=== PATIENT | male | born 1930 | race Caucasian/White ===

== ENCOUNTER 2017-02-19 11:56 | Emergency (ER) | payer MEDICARE, BC ==
[2017-02-19 12:40] LABS: #Eosinphils 0.1 thou/uL (0.0-0.7); #Lymphocytes 0.9 thou/uL (1.20-3.40); #Monocytes 0.6 thou/uL (0.11-0.59); #Neutrophils 6.1 thou/uL (1.40-6.50); %Basophils 0.5 % (0.0-1.0); %Eosinophils 1.6 % (0.0-10.0); %Lymphocytes 11.7 % (21.0-51.0); %Monocytes 8.1 % (0.0-10.0); Hematocrit 41.1 % (42.0-52.0); Mean Platelet Volume 8.6 fL (7.4-10.4); Red Blood Cell (RBC) Count 4.47 mill/uL (4.70-6.10); White Blood Cell (WBC) Count 7.9 thou/uL (4.8-10.8)
[2017-02-19 13:03] LABS: ALT (SGPT) 18 U/L (8-55); AST (SGOT) 24 U/L (5-34); Alkaline Phosphatase 101 U/L (40-150); Anion Gap 14 mmol/L (10-20); BUN (Urea Nitrogen) 27 mg/dL (8.4-25.7); Bilirubin, Total 0.4 mg/dL (0.2-1.2); Calc. Creatinine Clearance 0 mL/min (70-130); Calcium 9.4 mg/dL (7.8-10.44); Carbon Dioxide 25 mmol/L (23-31); Chloride 102 mmol/L (98-107); Estimated GFR-MDRD 58; Globulin 3.3 g/dL (2.4-3.5)
--- NOTE | 2017-02-19 14:44 | RAD ---
PORTABLE AP CHEST X-RAY: 02/19/2017 HISTORY: Concern for CHF. Dyspnea. COMPARISON: 04/04/2016 FINDINGS: Again noted is a pleural-based density at the left base, unchanged from prior study, which may be re lated to persistent left pleural effusion or pleural and parenchymal scarring. There is mild eventr ation of the medial aspect of the left hemidiaphragm. The right lung remains clear. The cardiac si lhouette and pulmonary vasculature are within normal limits. Again noted is evidence of prior granul omatous disease. A mass like prominence in the left hilar region is again seen and unchanged as wel l. There is osteopenia. Vascular calcification is again seen in the thoracic aorta. IMPRESSION: 1. Stable pleural-based density at the left lung base, which may be related to either a loculated p leural fluid collection or possibly secondary to pleural thickening. 2. Stable mass-like prominence in the left hilar region, seen on multiple prior studies, and was al so seen on a CT of the thorax on 10/19/[address] scan examination on 11/08/2012, and did not d emonstrate uptake on the PET scan. This may be related to a chronic area of rounded atelectasis. 3. Osteopenia. 4. Chest x-ray is overall stable from the prior exam. POS: [facility]
== END 2017-02-19 17:04 | disposition home or self-care (01) ==
LOC: ERS 11:56
DX: J20.9 Acute bronchitis, unspecified (principal); I11.0 Hypertensive heart disease with heart failure; I50.9 Heart failure, unspecified; E78.5 Hyperlipidemia, unspecified; F32.9 Major depressive disorder, single episode, unspecified; Z79.899 Other long term (current) drug therapy
CPT/HCPCS: 36415; 71010; 80053; 83880; 85025

== ENCOUNTER 2017-02-28 08:37 | Emergency (ER) | payer MEDICARE, BC ==
[2017-02-28 09:05] LABS: #Eosinphils 0.1 thou/uL (0.0-0.7); #Lymphocytes 0.6 thou/uL (1.20-3.40); #Monocytes 0.4 thou/uL (0.11-0.59); #Neutrophils 5.1 thou/uL (1.40-6.50); %Basophils 0.3 % (0.0-1.0); %Eosinophils 1.2 % (0.0-10.0); %Monocytes 6.7 % (0.0-10.0); Hematocrit 39.7 % (42.0-52.0); Mean Platelet Volume 8.3 fL (7.4-10.4); White Blood Cell (WBC) Count 6.2 thou/uL (4.8-10.8)
[2017-02-28 09:15] LABS: PTT 37.3 SEC (22.9-36.1); Prothrombin Time 15.1 SEC (12.0-14.7)
[2017-02-28 09:29] LABS: ALT (SGPT) 24 U/L (8-55); AST (SGOT) 29 U/L (5-34); Alkaline Phosphatase 90 U/L (40-150); Anion Gap 11 mmol/L (10-20); BUN (Urea Nitrogen) 20 mg/dL (8.4-25.7); Bilirubin, Total 0.3 mg/dL (0.2-1.2); CK (CPK) 130 U/L (30-200); Calc. Creatinine Clearance 0 mL/min (70-130); Calcium 8.9 mg/dL (7.8-10.44); Carbon Dioxide 26 mmol/L (23-31); Chloride 104 mmol/L (98-107); Estimated GFR-MDRD 78; Globulin 2.9 g/dL (2.4-3.5); Lipase 27 U/L (8-78); Protein, Total 6.5 g/dL (5.8-8.1)
--- NOTE | 2017-02-28 10:10 | RAD ---
SINGLE VIEW OF THE CHEST: COMPARISON: 02/19/17. HISTORY: Dark diarrhea and chest pain. FINDINGS: A single view of the chest shows an enlarged cardiomediastinal silhouette with atherosclerotic calci fications in the aorta. There is no evidence of consolidation, mass, or pleural effusion. Increase d interstitial lung markings are present. IMPRESSION: Cardiomegaly without evidence of acute cardiopulmonary disease. POS: [facility]
== END 2017-02-28 11:34 | disposition home or self-care (01) ==
LOC: ERS 08:37
DX: R19.7 Diarrhea, unspecified (principal); F32.9 Major depressive disorder, single episode, unspecified; E78.5 Hyperlipidemia, unspecified; I11.0 Hypertensive heart disease with heart failure; Z79.82 Long term (current) use of aspirin; I50.9 Heart failure, unspecified; Z79.899 Other long term (current) drug therapy
CPT/HCPCS: 36415; 71010; 80053; 82274; 82550; 83690; 85025; 85610; 85730